=== PATIENT | female | born 1990 | race Caucasian/White ===

== ENCOUNTER 2017-12-26 16:05 | Emergency (ER) | payer OTHER, BC ==
[~2017-12-26] VITALS: Ht 167.6 cm; Wt 61.2 kg
[~2017-12-26 16:05] MED LIST: ALBU90OI6 INH; AZIT250 PO; BC IMPLANT; HYDR1TAB94 PO; LEVFLO500 PO; PROM25 PO; RXOXYACE PO
== END 2017-12-26 17:40 | disposition home or self-care (01) ==
LOC: ER 16:05
DX: S16.1XXA Strain of muscle, fascia and tendon at neck level, initial encounter (principal); F17.200 Nicotine dependence, unspecified, uncomplicated; V29.9XXA Motorcycle rider (driver) (passenger) injured in unspecified traffic accident, initial encounter
CPT/HCPCS: 71046; 72040; 73502; 99284-25

== ENCOUNTER → 2018-07-20 | Outpatient (CLI) | payer BC | END | disposition home or self-care (01) | LOC: PLD 07:27 → LAB SHORT 07:27 | DX: D22.5 Melanocytic nevi of trunk (principal); L81.4 Other melanin hyperpigmentation | CPT/HCPCS: 88305 ==

== ENCOUNTER → 2019-04-15 | Outpatient (CLI) | payer BC, OTHER | LOC: LAB SHORT 16:21 → LAB EV 16:21 | DX: N39.0 Urinary tract infection, site not specified (principal) | CPT/HCPCS: 87077; 87086; 87186 ==